=== PATIENT | male | born 1975 | race Caucasian/White ===

== ENCOUNTER 2017-01-02 20:05 | Emergency (ER) | payer MEDICARE, OTHER ==
[2017-01-02] MEDS ORDERED: ASPIRIN 81 MG CHEW TAB PO ONE (20:13)
[2017-01-02] MEDS ORDERED: NITROGLYCERIN 0.4 MG TAB.SUBL SL ONE ×2 (20:18→20:35)
[2017-01-02 20:22] LABS: BASOPHILS % 0.6 (0.0-1.5); EOSINOPHILS % 4.1 % (0.0-6.8); MEAN CORPUSCULAR HEMOGLOBIN 30.8 pg (28.0-34.0); MEAN CORPUSCULAR VOLUME 90.1 fl (80.0-100.0); MONOCYTES % 2.8 % (0.0-11.0); NEUTROPHILS # 6.1 # k/uL (1.4-7.7)
--- NOTE | 2017-01-02 20:24 | ED Physician Documentation ---
Chest Pain - HPI Chief Complaint: Chest Pain Additional Information: 41 yo M with h/o CAD with several stent placement with the last episode about 2 years ago who now present with chest pain that started about 1 hour before presentation. He has not take any aspirin or nitro and still rating his pain as 5/10 in severity. Pain is substernal. Pain does not change with breathing. He reports smoking about a PPD. No increase in stressor reported. No fever or chills or cough reported. No nausea or perspiration noted. He also denies any palpitation. Last known Well Date: 01/02/17 Last Known Well Time: 19:20 - ROS CONST: none MS/LYMPH: none GI/: none EYES/ENT: none SKIN/ENDO: none NEURO/PSYCH: none - PAST HX CT risk factors: hypertension, cardiac disease DVT/PE Risk Factors: none TAD/AAA risk factors: none Neuro deficit: none GI disease: none Lung disease: none Surgeries/Procedures: stress test, cardiac stent Allergies/Adverse Reactions: Allergies Allergy/AdvReac Type Severity Reaction Status Date / Time No Known Allergies Allergy Verified 01/02/17 20:32 Home Medications: Ambulatory Orders Medication Instructions Recorded Atorvastatin Calcium 40 mg PO HS 08/08/15 Carvedilol [Coreg] 6.25 mg PO BS 08/08/15 Clonazepam 1 mg PO TID PRN 08/08/15 Clopidogrel Bisulfate [Clopidogrel] 75 mg PO DAILY 08/08/15 Gabapentin 100 mg PO TID 08/08/15 Lisinopril [Prinivil] 20 mg PO QD 08/08/15 Quetiapine Fumarate [Seroquel XR] 50 mg PO HS 08/08/15 Ranitidine HCl [Zantac] 75 mg PO 07 08/08/15 Ranolazine [Ranexa] 500 mg PO Q12 08/08/15 Sertraline HCl [Zoloft] 100 mg PO DAILY 08/08/15 Zaleplon [Sonata] 08/08/15 - SOCIAL HX Smoking History: greater than 1 pack/day - FAMILY HX Family HX: none - VITAL SIGNS Vital Signs: Vital Signs Temp Pulse Resp BP Pulse Ox 105/62 08/08/15 16:32 - REVIEWED ASSESSMENTS Nursing Assessment Reviewed: Yes Vitals Reviewed: Yes Progress - Progress Progress: Pt came in with chest pain and was given aspirin and nitro his 5/10 chest pain resolved completely and pt says he was going home. I explain to pt considering clinical history of CAD s/p stent to at least stay long enough to have his troponin repeated but he says he will rather signed out AMA. - EKG/XRAY/CT EKG: NSR, nonspecific ST T wave chg, ST depression (very minimal ST depression V4-V6) XRAY: chest (negative for any pulmonary findings) ED Results Lab/Radiology - Lab Results Lab Results: noted with negative initial troponin at 0.[address] wave abnormality - Orders Orders: ED Orders Category Date Time Status Continuous EKG monitoring Q30M Care 01/02/17 20:13 Active Continuous Pulse Oximetry Q30M Care 01/02/17 20:[address] Saline Lock/IV NOW Care 01/02/17 20:13 Active CHEST 1 VIEW [RAD] Stat Exams 01/02/17 20:13 Ordered CBC/PLATELET/DIFF Routine Lab 01/02/17 20:17 Received CMP Routine Lab 01/02/17 20:17 Received CREATINE KINASE Routine Lab 01/02/17 20:17 Received TROPONIN I (cTnI) Stat Lab 01/02/17 20:17 Received Aspirin Med 01/02/17 20:13 Discontinued 324 mg PO NOW ONE Oxygen Daily Oxygen 01/02/17 20:15 Ordered EKG WITH COMPARISON Stat Ther 01/02/17 20:13 Ordered Chest Pain Physical Exam - EXAM General Appearance: no acute distress EENT: eye inspection normal Neck: nml inspection Respiratory: no resp. distress CVS: reg. rate & rhythm Abdomen: soft, no distension, non-tender Skin: warm/dry Neuro: oriented X3 Discharge Clincal Impression: Chest pain Qualifiers: Chest pain type: unspecified Qualified Code(s): R07.9 - Chest pain, unspecified Referrals: Dipesh Nguyen MD [Primary Care Provider] - 2 Days Home Medications: Ambulatory Orders Atorvastatin Calcium 40 mg PO HS 08/08/15 Carvedilol [Coreg] 6.25 mg PO BS 08/08/15 Clonazepam 1 mg PO TID PRN 08/08/15 Clopidogrel Bisulfate [Clopidogrel] 75 mg PO DAILY 08/08/15 Gabapentin 100 mg PO TID 08/08/15 Lisinopril [Prinivil] 20 mg PO QD 08/08/15 Quetiapine Fumarate [Seroquel XR] 50 mg PO HS 08/08/15 Ranitidine HCl [Zantac] 75 mg PO 07 08/08/15 Ranolazine [Ranexa] 500 mg PO Q12 08/08/15 Sertraline HCl [Zoloft] 100 mg PO DAILY 08/08/15 Zaleplon [Sonata] 08/08/15 Comments: pt decided to sign out AMA after the resolution of his chest pain. I encouraged him to return to ED if symptom recur or if he has any concern Condition: Good Disposition: 07 AGAINST MEDICAL ADVICE Decision to Admit: NO Decision Time: 21:15 (pt decided to sign out AMA)
[2017-01-02 20:35] LABS: eGFR (African) > 60; eGFR (Non-African) > 60
[2017-01-02 22:09] VITALS: BP 136/83
--- NOTE | 2017-01-03 06:38 | Diagnostic Imaging Report ---
GEMINI PINO [facility] [address] [facility] [address] [place], [place]. [address] Report Submission Date: January 02, 2017 8:39:57 PM CDT Patient Study Name: JONG FLORES Date: January 02, 2017 8:27:34 PM CDT Modality Type: CR Gender: M Description: CHEST : 77 Institution: [facility] Physician: GEMINI PINO Chest AP single view Clinical history: Chest pain for today Normal heart shadow and mediastinum. Clear lungs without acute infiltrate or pleural effusion. Normal bony thorax. Impression: No active pulmonary pathology Electronically signed on January 02, 2017 8:39:57 PM CDT by: Dipesh AQUINO
== END 2017-01-02 21:15 | disposition left against medical advice (07) ==
LOC: ED 20:05
DX: R07.9 Chest pain, unspecified (principal)
CPT/HCPCS: 71010; 80053; 82550; 84484; 85025; 99283; S1016

== ENCOUNTER 2018-06-10 04:22 | Emergency (ER) | payer MEDICARE, OTHER ==
--- NOTE | 2018-06-10 04:37 | ED Physician Documentation ---
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 Pt took nitro x 3 with relief of pain. Pt states he still has a little chest tightness. Pt had nausea and some mild sob. Pt says he finds he is more sob lately. Pt walks 2 miles/day. No diaphoresis.) - ROS CONST: no problems EYES/ENT: none CVS/RESP: shortness of breath GI/: nausea MS/SKIN/LYMPH: none - PAST HX Past History: AMI (x3), other (HLD, HTN, GERD, depression) Surgeries/Procedures: cardiac stent - VITAL SIGNS Vital Signs: Vital Signs Temp Pulse Resp BP Pulse Ox 136/83 01/02/17 21:15 <Isaac Ricks - Last Filed: 06/10/18 07:00> - SOCIAL HX Smoking History: non-smoker Alcohol Use: none Drug Use: none - FAMILY HX Family History: No - VITAL SIGNS Vital Signs: Vital Signs Temp Pulse Resp BP Pulse Ox 72 18 139/88 99 06/10/18 06:31 06/10/18 06:31 06/10/18 06:31 06/10/18 06:31 - REVIEWED ASSESSMENTS Nursing Assessment Reviewed: Yes Vitals Reviewed: Yes <Ayah Giles - Last Filed: 06/10/18 18:39> - PAST HX Allergies/Adverse Reactions: Allergies Allergy/AdvReac Type Severity Reaction Status Date / Time No Known Allergies Allergy Verified 06/10/18 04:41 Home Medications: Ambulatory Orders Medication Instructions Recorded Atorvastatin Calcium 40 mg PO HS 08/08/15 Carvedilol [Coreg] 6.25 mg PO BS 08/08/15 Clonazepam 1 mg PO TID PRN 08/08/15 Clopidogrel Bisulfate [Clopidogrel] 75 mg PO DAILY 08/08/15 Lisinopril [Prinivil] 20 mg PO QD 08/08/15 Quetiapine Fumarate [Seroquel XR] 50 mg PO HS 08/08/15 Ranitidine HCl [Zantac] 75 mg PO 07 08/08/15 Ranolazine [Ranexa] 500 mg PO Q12 08/08/15 Sertraline HCl [Zoloft] 100 mg PO DAILY 08/08/15 Progress - Progress Progress: Care transferred to Ayah Giles at 0700. - EKG/XRAY/CT EKG: NSR (HR=76; non-specific ST/T-wave changes.) XRAY: chest (wnl) <JassiIsaac granados - Last Filed: 06/10/18 07:00> - Progress Progress: 704: Care assumed. Pt is sleeping quietly in bed. VS stable. Awaiting labs DG 0800: pt is awake and denies any pain. DG <Ayah Giles - Last Filed: 06/10/18 18:39> ED Results Lab/Radiology - Lab Results Lab Results: Lab Results 06/10/18 06/10/18 06/10/18 04:47 04:46 04:46 WBC 11.20 K/ul K/ul (4.00-12.00) RBC 4.54 M/ul M/ul (3.90-5.20) Hgb 13.2 g/dL g/dL (12.0-18.0) Hct 40.3 % % (37.0-53.0) MCV 89.0 fl fl (80.0-100.0) MCH 29.2 pg pg (28.0-34.0) MCHC 32.9 g/dL g/dL (30.0-36.0) RDW 12.8 % % (11.3-14.3) Plt Count 217 K/mm3 K/mm3 (130-400) Neut % (Auto) 57.0 % % (39.0-79.0) Lymph % (Auto) 30.2 % % (16.0-50.0) [place] % (Auto) 7.7 % % (0.0-11.0) Eos % (Auto) 4.2 % % (0.0-6.8) Baso % (Auto) 0.9 (0.0-1.5) Neut # (Auto) 6.4 # k/uL # k/uL (1.4-7.7) Lymph # (Auto) 3.4 # k/uL # k/uL (0.6-4.0) [place] # (Auto) 0.9 # k/uL # k/uL (0.0-0.9) Eos # (Auto) 0.5 # k/uL # k/uL (0.0-0.6) Baso # (Auto) 0.1 # k/uL # k/uL (0.0-0.5) D-Dimer 333 ng/mL ng/mL (6.0-682) Sodium 142 mmol/L mmol/L (136-145) Potassium 3.6 mmol/L mmol/L (3.5-5.1) Chloride 103 mmol/L mmol/L (98-107) Carbon Dioxide 29 mmol/L mmol/L (22-30) BUN 12 mg/dL mg/dL (9-20) Creatinine 0.90 mg/dL mg/dL (0.66-1.25) Est GFR ( Amer) > 60 (60 - ) Est GFR (Non-Af Amer) > 60 (60 - ) Glucose 112 mg/dL H mg/dL (74-106) Calcium 8.6 mg/dL mg/dL (8.4-10.2) Total Bilirubin 0.1 mg/dL L mg/dL (0.2-1.3) AST 23 U/L U/L (15-46) ALT 27 U/L U/L (13-69) Alkaline Phosphatase 78 U/L U/L (38-126) Creatine Kinase 129 U/L U/L (55-170) CK-MB (CK-2) 5.9 ng/mL H ng/mL (0.0-5.6) NT-Pro-B Natriuret Pep 126.0 pg/mL H pg/mL (15.0-125.0) Total Protein 6.9 g/dL g/dL (6.3-8.2) Albumin 3.5 g/dL g/dL (3.5-5.0) - Orders Orders: ED Orders Category Date Time Status Continuous EKG monitoring Q30M Care 06/10/18 04:38 Active Continuous Pulse Oximetry Q30M Care 06/10/18 04:[address] IV Lock 1T Care 06/10/18 04:38 Active CHEST 1VIEW [RAD] Stat Exams 06/10/18 Completed CBC/PLATELET/DIFF Routine Lab 06/10/18 04:46 Completed CKMB Stat Lab 06/10/18 04:47 Completed CMP Routine Lab 06/10/18 04:46 Completed CREATINE KINASE Routine Lab 06/10/18 04:46 Completed D DIMER Stat Lab 06/10/18 04:47 Completed NT-proBNP Stat Lab 06/10/18 04:47 Completed TROPONIN T (Jon) Stat Lab 06/10/18 04:47 Received Aspirin Med 06/10/18 04:38 Discontinued 324 mg PO NOW ONE Oxygen Daily Oxygen 06/10/18 04:45 Ordered EKG WITH COMPARISON Stat Ther 06/10/18 04:38 Completed <Ayah Giles - Last Filed: 06/10/18 18:39> General Adult Physical Exam - PHYSICAL EXAM GENERAL APPEARANCE: no distress EENT: eye inspection normal, ENT inspection normal NECK: normal inspection RESPIRATORY: no resp distress, chest non-tender CVS: reg rate & rhythm, heart sounds normal ABDOMEN: soft BACK: normal inspection SKIN: warm/dry, normal color EXTREMITIES: non-tender, normal range of motion, no evidence of injury, no edema NEURO: oriented X3 <Ayah Giles - Last Filed: 06/10/18 18:39> Discharge <Isaac Ricks - Last Filed: 06/10/18 07:00> Comments: 1. Continue home meds 2. Follow up with PCP over increasing shortness of breath with activity 3. Return to ER for any concerns Decision to Admit: NO Date of Decison to Admit: 06/10/18 Decision Time: 08:12 <Ayah Giles - Last Filed: 06/10/18 18:39> Clincal Impression: Chest pain Qualifiers: Chest pain type: unspecified Qualified Code(s): R07.9 - Chest pain, unspecified Referrals: Dipesh Nguyen MD [Primary Care Provider] - 2 Days Condition: Stable Disposition: 01 HOME, SELF-CARE
[2018-06-10] MEDS ORDERED: ASPIRIN 81 MG CHEW TAB PO ONE (04:38)
[2018-06-10 05:08] LABS: eGFR (Non-African) > 60
[2018-06-10 05:09] LABS: BASOPHILS % 0.9 (0.0-1.5); EOSINOPHILS % 4.2 % (0.0-6.8); MEAN CORPUSCULAR HEMOGLOBIN 29.2 pg (28.0-34.0); MONOCYTES % 7.7 % (0.0-11.0); NEUTROPHILS # 6.4 # k/uL (1.4-7.7)
--- NOTE | 2018-06-10 06:38 | Diagnostic Imaging Report ---
OLE ALFORD [facility] [address] [facility] [address] [address] Report Submission Date: Jun 10, 2018 5:15:20 AM CDT Patient Study Name: JONG FLORES Date: Jun 10, 2018 4:52:53 AM CDT Modality Type: DX Gender: M Description: CHEST : 77 Institution: [facility] Physician: OLE ALFORD Chest, 1 view History: CHEST PAIN THAT JUST STARTED THIS MORNING Findings: The heart size is normal. The lungs are clear. There is no pleural effusion or pneumothorax identified. The osseous structures are normal. Impression: 1. No acute pulmonary disease. Electronically signed on Jun 10, 2018 5:15:20 AM CDT by: Jose Miguel AQUINO
[2018-06-10 08:09] LABS: TROPONIN T <0.010 ng/mL (<0.010)
[2018-06-10 09:00] VITALS: BP 116/72
== END 2018-06-10 08:21 | disposition home or self-care (01) ==
LOC: ED 04:22
DX: R07.9 Chest pain, unspecified (principal); Z86.79 Personal history of other diseases of the circulatory system
CPT/HCPCS: 71045; 80053; 82550; 82553; 83880; 84484; 85025; 85379; 99285; S1016

== ENCOUNTER 2018-09-04 07:09 | Emergency (ER) | payer MEDICARE, OTHER ==
--- NOTE | 2018-09-04 07:19 | ED Physician Documentation ---
Upper Extremity Injury - HPI Stated Complaint: right index finger injury Chief Complaint: Upper Extremity Injury Additional Information: Patient with past medical history of CAD (s/p stents), HTN presents to ED after shutting his right index finger in car door this morning. Patient presented to ED with blood pressure of 147/110. Patient just took Klonopin prior to arrival. Onset: just prior to arrival Where: home Severity: mild Duration: persistent since Context: crush Associated Symptoms: denies: numbness distally Modifying Factors: pain on movement Further Comments: no - ROS CONST: denies: fever CVS/RESP: denies: chest pain, shortness of breath NEURO: denies: headache MS/SKIN/LYMPH: denies: neck pain GI/: denies: nausea, vomiting - PAST HX Past History: cardiac disease Allergies/Adverse Reactions: Allergies Allergy/AdvReac Type Severity Reaction Status Date / Time losartan Allergy Verified 09/04/18 07:27 tape Allergy Uncoded 09/04/18 07:27 Home Medications: Ambulatory Orders Medication Instructions Recorded Atorvastatin Calcium 40 mg PO HS 08/08/15 Carvedilol [Coreg] 12.5 mg PO BID 08/08/15 Clonazepam 1 mg PO TID PRN 08/08/15 Lisinopril [Prinivil] 20 mg PO QD 08/08/15 Quetiapine Fumarate [Seroquel XR] 50 mg PO HS 08/08/15 Sertraline HCl [Zoloft] 100 mg PO DAILY 08/08/15 Aspirin [Jose Miguel] 325 mg PO DAILY 09/04/18 - SOCIAL HX Smoking History: non-smoker Alcohol Use: none Drug Use: none - FAMILY HX Family History: cardiac disease - VITAL SIGNS Vital Signs: Vital Signs Temp Pulse Resp BP Pulse Ox 98.0 F 85 18 147/110 99 09/04/18 07:20 09/04/18 07:20 09/04/18 07:20 09/04/18 07:20 09/04/18 07:20 - REVIEWED ASSESSMENTS Nursing Assessment Reviewed: Yes Vitals Reviewed: Yes ED Results Lab/Radiology - Orders Orders: ED Orders Category Date Time Status FINGER 2 VIEWS OR MORE [RAD] Stat Exams 09/04/18 Taken Upper Extremity Injury Physic - Physical Exam General Appearance: no acute distress, alert Hand: limited ROM, nail injury, soft tissue tenderness, swelling Wrist: normal inspection Elbow/Forearm: normal inspection Shoulder: normal inspection Neuro/Vascular/Tendon: no vascular compromise, motor nml Skin: warm,dry Head/ENT: nml inspection Neck/Back: nml inspection Resp/CVS: chest non-tender, breath sounds nml, heart sounds nml Abdomen: non-tender Discharge Clincal Impression: Injury of right index finger Qualifiers: Encounter type: initial encounter Qualified Code(s): S69.91XA - Unspecified injury of right wrist, hand and finger(s), initial encounter Referrals: Dipesh Nguyen MD [Primary Care Provider] - 2 Days Condition: Stable Disposition: 01 HOME, SELF-CARE Decision to Admit: NO Date of Decison to Admit: 09/04/18 Decision Time: 07:59
[2018-09-04 08:26] VITALS: BP 135/95
--- NOTE | 2018-09-05 04:57 | Diagnostic Imaging Report ---
SONYA CRAIN [facility] [address] [facility] [address] [place] [address]. [address] Report Submission Date: Sep 04, 2018 8:12:10 AM [employer] Patient Study Name: JONG FLORES Date: Sep 04, 2018 7:26:56 AM [employer] Modality Type: DX Gender: M Description: UPPER EXTREMITY : 77 Institution: [facility] Physician: SONYA CRAIN Examination: Plain film right finger. History: RT FINGER, PAIN IN RT 2ND DIGIT AFTER SLAMMING FINGER IN DOOR (Hx) Comparison exams: None available Findings: 3 views of the right 2nd digit demonstrate normal cortical margins. No fracture. No dislocation. Soft tissue air in the region of the fingernail. Impression: No acute appearing osseous abnormality Electronically signed on Sep 04, 2018 8:12:10 AM [employer] by: Camacho AQUINO
== END 2018-09-04 08:25 | disposition home or self-care (01) ==
LOC: ED 07:09
DX: S69.91XA Unspecified injury of right wrist, hand and finger(s), initial encounter (principal); W23.1XXA Caught, crushed, jammed, or pinched between stationary objects, initial encounter; Y93.9 Activity, unspecified; Y92.810 Car as the place of occurrence of the external cause
CPT/HCPCS: 73140; 99282; 99283

== ENCOUNTER 2019-01-04 23:11 | Emergency (ER) | payer MEDICARE ==
[2019-01-04] MEDS ORDERED: hydrALAZINE HCL 25 MG TABLET PO ONE (23:24)
--- NOTE | 2019-01-04 23:32 | ED Physician Documentation ---
Low Back Pain - HISTORIAN Historian: patient - HPI Stated Complaint: low back pain Chief Complaint: Low Back Pain/ Injury Additional Information: Patient presents to ED with low back pain since this morning. He states he moved furniture yesterday and woke up this morning with low back pain radiating down both legs. He also has some right shoulder pain too. History: back pain Onset: hours (12) Duration: continues in ED Recent Injury: No Context: lifting Where: home Other Injuries: neck Severity: mild Quality: burning, sharp, similar- prior back pain Associated Symptoms: denies: fever Worsened By:: upright position Relieved By: supine - ROS CONST: no problems CVS/RESP: none EYES/ENT: none MS/SKIN/LYMPH: none Neuro/Psych: none GI/: denies: abdominal pain - PAST HX Past History: back pain Other History: cardiac disease, CAD Surgeries/Procedures: none, other (cardiac stents) Allergies/Adverse Reactions: Allergies Allergy/AdvReac Type Severity Reaction Status Date / Time losartan Allergy Verified 01/04/19 23:31 tape Allergy Uncoded 01/04/19 23:31 Home Medications: Ambulatory Orders Medication Instructions Recorded Atorvastatin Calcium 40 mg PO HS 08/08/15 Carvedilol [Coreg] 12.5 mg PO BID 08/08/15 Clonazepam 1 mg PO TID PRN 08/08/15 Lisinopril [Prinivil] 20 mg PO QD 08/08/15 Quetiapine Fumarate [Seroquel XR] 50 mg PO HS 08/08/15 Sertraline HCl [Zoloft] 100 mg PO DAILY 08/08/15 Aspirin [Jose Miguel] 325 mg PO DAILY 09/04/18 Ranolazine [Ranexa] 500 mg PO DAILY 01/04/19 amLODIPine BESYLATE [Norvasc] 5 mg PO DAILY 01/04/19 Baclofen 10 mg PO BID PRN #28 tablet 01/05/19 predniSONE [Deltasone] 20 mg PO DIRECTED #13 tablet 01/05/19 - SOCIAL HX Smoking History: non-smoker Alcohol Use: none Drug Use: none - FAMILY HX Family History: none - VITAL SIGNS Vital Signs: Vital Signs Temp Pulse Resp BP Pulse Ox 99.1 F 92 H 16 168/117 97 01/04/19 23:15 01/04/19 23:15 01/04/19 23:15 01/04/19 23:15 01/04/19 23:15 - REVIEWED ASSESSMENTS Nursing Assessment Reviewed: Yes Vitals Reviewed: Yes ED Results Lab/Radiology - Orders Orders: ED Orders Category Date Time Status Baclofen [Lioresal] Med 01/04/19 23:36 Discontinued 10 mg PO NOW ONE hydrALAZINE HCL [Apresoline] Med 01/04/19 23:24 Discontinued 50 mg PO NOW ONE methylPREDNISolone SOD SUCC [SOLU-Medrol] Med 01/04/19 23:37 Discontinued 125 mg IM NOW ONE Low Back Pain/Injury - Physical Exam General Appearance: no acute distress, alert EENT: ENT inspection normal, IZABELA Neck: non-tender, painless ROM, other (right upper trapezius tenderness) Resp/CVS: chest non-tender, heart sounds nml Abdomen: non-tender Back: non-tender, muscle spasm (bilateral low back). No: vertebral point- tendernes Straight Leg Raising: Positive Left, Positive Right Neuro/Psych: oriented x3, sensation nml, reflexes nml Skin: warm/dry, normal color Extremities: non-tender, normal range of motion, no evidence of injury, no edema Discharge Clincal Impression: Low back pain Qualifiers: Chronicity: acute Back pain laterality: bilateral Sciatica presence: with sciatica Sciatica laterality: bilateral sciatica Qualified Code(s): M54.42 - Lumbago with sciatica, left side Prescriptions: Baclofen 10 mg PO BID PRN #28 tablet PRN Reason: muscle spasm/back pain predniSONE [Deltasone] 20 mg PO DIRECTED #13 tablet Referrals: Dipesh Nguyen MD [Primary Care Provider] - 2 Days Additional Instructions: 1. Take Prednisone as directed 2. Take Baclofen as needed for muscle spasm 3. Tylenol as needed for pain 4. Stay active 5. Follow up with PCP within 1 week 6. Return to ER for new or worsening symptoms Condition: Stable Disposition: 01 HOME, SELF-CARE Decision to Admit: NO Date of Decison to Admit: 01/04/19 Decision Time: 23:47
[2019-01-04] MEDS ORDERED: BACLOFEN 10 MG TABLET PO ONE (23:36)
[2019-01-04] MEDS ORDERED: methylPREDNISolone SOD SUCC 125 MG/2 ML VIAL IM ONE (23:37)
[2019-01-05 00:10] VITALS: BP 175/124
== END 2019-01-05 00:10 | disposition home or self-care (01) ==
LOC: ED 23:11
DX: M54.41 Lumbago with sciatica, right side (principal); M54.42 Lumbago with sciatica, left side
CPT/HCPCS: 96372; 99283; J2930

== ENCOUNTER 2019-04-01 07:34 | Emergency (ER) | payer MEDICARE ==
--- NOTE | 2019-04-01 07:53 | ED Physician Documentation ---
Ear Complaints - HISTORIAN Historian: patient - HPI Stated Complaint: ear pain Chief Complaint: Earache Additional Information: Patient is a 43-year-old male that presents to the ER with c/o Left ear discomfort and jaw pain. He states that symptoms started 4 days ago- sinus pressure and nasal drainage present. He denies any fever, chills, or cough. Timing: still present Location of Pain: L ear Severity: mild Associated Symptoms: dull pain, aching, hearing loss, jaw pain, sore throat. denies: fever, chills - ROS CONST: no problems CVS/RESP: none GI/: denies: nausea, vomiting MS/SKIN/LYMPH: none NEURO/PSYCH: none - PAST HX Past History: other (stents x 8, angioplasty) Immunizations: UTD Allergies/Adverse Reactions: Allergies Allergy/AdvReac Type Severity Reaction Status Date / Time losartan Allergy Verified 04/01/19 07:51 tape Allergy Uncoded 04/01/19 07:51 Home Medications: Ambulatory Orders Medication Instructions Recorded Atorvastatin Calcium 40 mg PO HS 08/08/15 Carvedilol [Coreg] 12.5 mg PO BID 08/08/15 Clonazepam 1 mg PO TID PRN 08/08/15 Lisinopril [Prinivil] 20 mg PO QD 08/08/15 Quetiapine Fumarate [Seroquel XR] 50 mg PO HS 08/08/15 Sertraline HCl [Zoloft] 100 mg PO DAILY 08/08/15 Aspirin [Jose Miguel] 325 mg PO DAILY 09/04/18 Ranolazine [Ranexa] 500 mg PO DAILY 01/04/19 amLODIPine BESYLATE [Norvasc] 5 mg PO DAILY 01/04/19 Baclofen 10 mg PO BID PRN #28 tablet 01/05/19 predniSONE [Deltasone] 20 mg PO DIRECTED #13 tablet 01/05/19 Amoxicillin/Potassium Clav 1 each PO BID #20 tablet 04/01/19 [Augmentin 875-125 Tablet] - SOCIAL HX Smoking History: less than 1 pack/day Alcohol Use: none Drug Use: none - FAMILY HX Family History: No - VITAL SIGNS Vital Signs: Vital Signs Temp Pulse Resp BP Pulse Ox 97.1 F L 73 14 171/106 98 04/01/19 07:40 04/01/19 07:40 04/01/19 07:40 04/01/19 07:40 04/01/19 07:40 - REVIEWED ASSESSMENTS Nursing Assessment Reviewed: Yes Vitals Reviewed: Yes Ear Complaint Physical Exam - EXAM General Appearance: no acute distress, alert Ear: auricle nml, pain w movement of auricl, left, erythema, dullness Mouth/Throat: lips nml, gums nml, pharyngeal erythema Nose: nml inspection Head/Neck: neck nml inspection, cervical lymphadenopathy Eye: eyes nml inspection, PERRL, pain of sinuses Resp/CVS: breath sounds nml, heart sounds nml, no resp. distress, lungs clear Abdomen: non-tender Skin: nml color, no skin rash Neuro/Psych: oriented x3, mood/affect nml Discharge Clincal Impression: Acute sinus infection Referrals: Dipesh Nguyen MD [Primary Care Provider] - 2 Days Additional Instructions: Take Augmentin 875mg by mouth twice a day for 10 days (finish antibiotic) Do not get water in ears Alternate Tylenol and Ibuprofen as needed for discomfort Warm salt water gargles 4 times a day (will decrease inflammation of throat) Hot tea with honey will help decrease postnasal drainage Cool mist humidifier Follow up with PCP next week for re-evaluation Condition: Good Disposition: 01 HOME, SELF-CARE Decision to Admit: NO Decision Time: 07:54
[2019-04-01 07:55] VITALS: BP 164/95
== END 2019-04-01 07:53 | disposition home or self-care (01) ==
LOC: ED 07:34
DX: J01.90 Acute sinusitis, unspecified (principal)
CPT/HCPCS: 99282

== ENCOUNTER 2019-07-23 18:20 | Emergency (ER) | payer MEDICARE ==
[2019-07-23 19:35] LABS: APPEARANCE,URINE CLEAR (CLEAR); COLOR,URINE YELLOW (YELLOW); OCCULT BLOOD,URINE 2+ (NEGATIVE); PH URINE 5.5 (5.0 - 8.0); UROBILINOGEN URINE 0.2 Eu (0.2-1.0)
--- NOTE | 2019-07-23 19:45 | ED Physician Documentation ---
Male Genitourinary Problems - HISTORIAN Historian: patient - HPI Stated Complaint: foreskin pain Chief Complaint: Male Genitourinary Problems Additional Information: Patient presents to ED with redness, pain, swelling to head of penis x 3 days. Patient is not circumcised and has had clear/white discharge from the skin around his penis. He denies any urethra discharge, painful urination, testicular pain or fever. Onset: days ago (3) Duration: continues in ED Context: denies: drug use, lifting, recent surgery Severity: denies: moderate - Associated Symptoms Problems Urinating: denies: blood in urine, frequent urination, discomfort w/ urination, burning w/ urination Testicular Pain: none Testicular Swelling: none Penile Pain: Yes Penile Swelling: Yes Inguinal Mass: No Flank Pain: none Abdominal Pain: none - Sexual History Sexual History: non-contributory - ROS CONST: none GI/: denies: nausea MS/SKIN/LYMPH: none CVS/RESP: none EYES/ENT: none - PAST HX Past History: denies: erectile dysfunction Cardiac Disease: CAD Surgeries/Procedures: none Allergies/Adverse Reactions: Allergies Allergy/AdvReac Type Severity Reaction Status Date / Time losartan Allergy Verified 07/23/19 19:05 tape Allergy Uncoded 07/23/19 19:05 Home Medications: Ambulatory Orders Medication Instructions Recorded Atorvastatin Calcium 40 mg PO HS 08/08/15 Carvedilol [Coreg] 12.5 mg PO BID 08/08/15 Clonazepam 1 mg PO TID PRN 08/08/15 Lisinopril [Prinivil] 20 mg PO QD 08/08/15 Quetiapine Fumarate [Seroquel XR] 50 mg PO HS 08/08/15 Sertraline HCl [Zoloft] 100 mg PO DAILY 08/08/15 Aspirin [Jose Miguel] 325 mg PO DAILY 09/04/18 Ranolazine [Ranexa] 500 mg PO DAILY 01/04/19 amLODIPine BESYLATE [Norvasc] 5 mg PO DAILY 01/04/19 Nystatin Cream [Mycostatin] 1 applic TP TID 30 Days #30 gm 07/23/19 - SOCIAL HX Smoking History: non-smoker Alcohol Use: none Drug Use: none - FAMILY HX Family History: none - VITAL SIGNS Vital Signs: Vital Signs Temp Pulse Resp BP Pulse Ox 96.5 F L 79 14 154/94 97 07/23/19 18:20 07/23/19 18:20 07/23/19 18:20 07/23/19 18:20 07/23/19 18:20 - REVIEWED ASSESSMENTS Nursing Assessment Reviewed: Yes Vitals Reviewed: Yes ED Results Lab/Radiology - Lab Results Lab Results: Lab Results 07/23/19 19:10 Urine Color Yellow (YELLOW) Urine Appearance Clear (CLEAR) Urine pH 5.5 (5.0 - 8.0) Ur Specific [place] >=1.030 H (1.010-1.030) Urine Protein Trace mg/dL mg/dL (NEGATIVE) Urine Ketones Negative mg/dL mg/dL (NEGATIVE) Urine Occult Blood 2+ H (NEGATIVE) Urine Nitrite Negative (NEGATIVE) Urine Bilirubin Negative (NEGATIVE) Urine Urobilinogen 0.2 Eu Eu (0.2-1.0) Ur Leukocyte Esterase Negative (NEGATIVE) Urine Glucose Negative mg/dL mg/dL (NEGATIVE) - Orders Orders: ED Orders Category Date Time Status CHLAMYDIA & GONORRHOEAE Stat Lab 07/23/19 19:37 Received GENITAL CULTURE Stat Lab 07/23/19 19:37 Received UA MACRO DIP ONLY Routine Lab 07/23/19 19:10 Completed Fluconazole [Diflucan] Med 07/23/19 19:48 Once 150 mg PO NOW ONE Nystatin Cream [Mycostatin] Med 07/23/19 19:48 Once 1 appl TP NOW ONE Male Genitourinary Problems - EXAM General Appearance: no acute distress, alert Abdomen: non-tender Genitals: uncircumcised, examined while standing, other (beefy red meatus, no penile discharge). No: urethral discharge EENT: IZABELA Neck: nml inspection Respiratory: no resp distress, breath sounds normal Back: non-tender, painless ROM Extremities: normal range of motion Neuro/Psych: oriented X3, mood/affect nml Discharge Clincal Impression: Candidiasis of penis Prescriptions: Nystatin Cream [Mycostatin] 1 applic TP TID 30 Days #30 gm Referrals: Primary Doctor,No [Primary Care Provider] - 2 Days Additional Instructions: 1. Apply Nystatin cream every 8 hours x 30 days. Repeat if symptoms persist 2. Keep foreskin clean and dry. Wash with mild soap prior to applying Nystatin cream 3. Follow up with PCP within 1 week 4. Return to ER for new or worsening symptoms Condition: Stable Disposition: 01 HOME, SELF-CARE Decision to Admit: NO Date of Decison to Admit: 07/23/19 Decision Time: 19:53
[2019-07-23] MEDS ORDERED: NYSTATIN 100000 UNIT/GM TP ONE (19:48)
[2019-07-23] MEDS ORDERED: FLUCONAZOLE 150 MG TABLET PO ONE (19:48)
[2019-07-23 20:13] VITALS: BP 164/95
== END 2019-07-23 20:07 | disposition home or self-care (01) ==
LOC: ED 18:20
DX: B37.49 Other urogenital candidiasis (principal)
CPT/HCPCS: 81002; 87070; 87491; 87591; 99283; 99284